=== PATIENT | male | born 1985 | race African-American/Black ===

== ENCOUNTER 2017-09-15 17:31 | Emergency (ER) | payer MEDICAID, OTHER ==
[~2017-09-15] VITALS: Ht 175.3 cm; Wt 77.0 kg
[2017-09-15 17:33] VITALS: BP 109/68
== END 2017-09-15 19:19 | disposition left against medical advice (07) ==
LOC: ER 17:43
DX: R45.851 Suicidal ideations (principal); F32.9 Major depressive disorder, single episode, unspecified; F79 Unspecified intellectual disabilities
CPT/HCPCS: 99284

== ENCOUNTER 2024-11-12 07:09 | Emergency (ER) | payer MEDICAID, OTHER ==
[~2024-11-12] VITALS: Ht 182.9 cm; Wt 82.0 kg
[2024-11-12 07:14] VITALS: BP 134/90; PULSE 72; RESP 18; TEMP 98.4; O2SAT 95
[2024-11-12] MEDS ORDERED: ONDANSETRON HCL 4MG/2ML INJ IV NR (07:36)
[2024-11-12] MEDS ORDERED: DICYCLOMINE HCL 10MG CAPSULE PO NR (07:45)
[2024-11-12] MEDS ORDERED: SODIUM CHLORIDE 0.9% 1,000 ML IV ONE (07:45)
[2024-11-12] MEDS ORDERED: FAMOTIDINE 20MG TABLET PO NR (08:30)
[2024-11-12 08:47] LABS: *AMPHETAMINES SCREEN URINE PRESUMPTIVE POSITIVE (NEGATIVE); *BARBITURATES SCREEN URINE NEGATIVE (NEGATIVE); *BENZODIAZEPINES SCREEN URINE NEGATIVE (NEGATIVE); *COCAINE SCREEN URINE NEGATIVE (NEGATIVE); METHADONE URINE SCREEN NEGATIVE (NEGATIVE); OPIATES URINE SCREEN NEGATIVE (NEGATIVE); PHENCYCLIDINE URINE SCREEN NEGATIVE (NEGATIVE)
[2024-11-12 08:48] LABS: CANNABINOID URINE SCREEN NEGATIVE (NEGATIVE); ECSTASY MDMA SCREEN URINE CONF.TEST INDICATED (NEGATIVE)
== END 2024-11-12 09:05 | disposition left against medical advice (07) ==
LOC: ER 07:09
DX: R45.851 Suicidal ideations (principal); F15.10 Other stimulant abuse, uncomplicated
CPT/HCPCS: 71045; 80305; 93005; 99291

== ENCOUNTER 2025-02-07 07:17 | Emergency (ER) | payer MEDICAID ==
[~2025-02-07] VITALS: Ht 172.7 cm; Wt 75.0 kg
[2025-02-07 07:27] VITALS: O2SAT 99
[2025-02-07] MEDS: LORAZEPAM 1MG TABLET PO ONE (08:15)
[2025-02-07 08:56] LABS: CHLORIDE 106 mEq/L (98-107); POTASSIUM 3.5 mEq/L (3.5-5.1); SODIUM 143 mEq/L (136-145)
[2025-02-07 08:57] LABS: CALCIUM 10.4 mg/dL (8.7-10.4); CARBON DIOXIDE 26 mEq/L (21-32)
[2025-02-07 09:02] LABS: CREATININE 1.5 mg/dL (0.6-1.3); GLUCOSE 52 mg/dL (70-105); UREA NITROGEN BLOOD 23 mg/dL (9-23)
[2025-02-07 09:03] LABS: ETHANOL BLOOD < 10 mg/dL (<10)
[2025-02-07 09:04] LABS: ACETAMINOPHEN < 2 ug/mL (10-30)
[2025-02-07 09:21] LABS: HEMOGLOBIN. 14.4 g/dL (14.0-18.0); MEAN CORPUSCULAR HEMOGLOBIN 27.1 pg (28.0-32.0); MEAN CORPUSCULAR HGB CONC 31.4 g/dL (31.0-37.0); MEAN CORPUSCULAR VOLUME 86.3 fL (80.0-94.0); MEAN PLATELET VOLUME 8.6 fl (7.4-10.4); PLATELET 279 x1000/uL (130-400); RED BLOOD CELL COUNT 5.33 mill/uL (4.7-6.1); RED CELL DISTRIBUTION WIDTH 14.2 % (11.6-14.6); WHITE BLOOD COUNT 18.1 x1000/uL (4.5-11.0)
[2025-02-07 09:33] LABS: DIFFERENTIAL COMMENT 1
[2025-02-07 10:28] LABS: PLATELET ESTIMATE NORMAL
[2025-02-07] MEDS: POLYETHYLENE GLYCOL 3350 (17GM) 1 DOSE PACK PO NR (11:30)
[2025-02-07] MEDS: LORAZEPAM 2MG/ML UD SYRINGE IM NR (11:55)
[2025-02-07] MEDS: HALOPERIDOL LACTATE 5MG/ML VIAL IM ONE (11:55)
[2025-02-07 18:13] LABS: CLARITY URINE CLEAR (CLEAR); COLOR URINE DARK YELLOW (YELLOW); GLUCOSE URINE NEGATIVE (NEGATIVE); KETONES URINE 1+ (NEGATIVE); LEUKOCYTE ESTERASE URINE NEGATIVE (NEGATIVE); NITRITE URINE NEGATIVE (NEGATIVE); OCCULT BLOOD URINE 3+ (NEGATIVE); PROTEIN URINE 1+ (NEGATIVE)
[2025-02-07 18:32] LABS: *AMPHETAMINES SCREEN URINE PRESUMPTIVE POSITIVE (NEGATIVE); *BARBITURATES SCREEN URINE NEGATIVE (NEGATIVE); *BENZODIAZEPINES SCREEN URINE NEGATIVE (NEGATIVE); *COCAINE SCREEN URINE NEGATIVE (NEGATIVE); CANNABINOID URINE SCREEN PRESUMPTIVE POSITIVE (NEGATIVE); ECSTASY MDMA SCREEN URINE CONF.TEST INDICATED (NEGATIVE); METHADONE URINE SCREEN NEGATIVE (NEGATIVE); OPIATES URINE SCREEN NEGATIVE (NEGATIVE); PHENCYCLIDINE URINE SCREEN NEGATIVE (NEGATIVE)
[2025-02-07 18:46] LABS: BACTERIA URINE 2+; SQUAMOUS EPITHELIAL CELL URINE FEW /lpf (RARE/1+)
[2025-02-07 18:47] LABS: WBC URINE 0-2 /hpf (0-2)
[2025-02-07] MEDS: TRAZODONE HCL 50MG TABLET PO SCH (23:00)
[2025-02-08 19:02] VITALS: BP 130/66; PULSE 82; RESP 15; TEMP 36.8; O2SAT 100
== END 2025-02-08 19:07 | disposition short-term general hospital (02) ==
LOC: ER 07:23
DX: F29 Unspecified psychosis not due to a substance or known physiological condition (principal); F15.10 Other stimulant abuse, uncomplicated; F12.90 Cannabis use, unspecified, uncomplicated; F11.10 Opioid abuse, uncomplicated; D72.829 Elevated white blood cell count, unspecified; Z79.899 Other long term (current) drug therapy; Z20.822 Contact with and (suspected) exposure to COVID-19
CPT/HCPCS: 80305; 80048; 81003; 80307; 80329; 80320; 85025; 36415; 93005; 96372; 99285; 87426; Z7610 ×2; J1630; J2060; G0480